=== PATIENT | female | born 1945 | race Caucasian/White ===

== ENCOUNTER 2018-01-16 16:43 | Emergency (ER) | payer MEDICARE ==
[2018-01-16] MEDS ORDERED: MECLIZINE 12.5 MG TAB PO STA (17:48)
--- NOTE | 2018-01-16 17:59 | ED ---
Dizziness HPI - General Chief Complaint: Dizziness Stated Complaint: vertigo Time Seen by Provider: 01/16/18 17:25 Source: patient, EMS, RN notes reviewed, old records reviewed Mode of arrival: EMS Limitations: no limitations - History of Present Illness Initial Comments: Patient is a 72-year-old female presents emergency department today for reevaluation due to dizziness. Patient reports that she has suffered from gastroenteritis earlier this week. Patient states that since that time she's been feeling somewhat dizzy. Patient reports that she went to urgent care on Friday, and they sent her to [facility] for high blood pressure. Patient reports that at that time they gave her some medication for blood pressure and she was discharged home shortly afterward. She complained of no chest pain shortness breath. Patient states that they did start her on Norvasc and she reports the medicines today. She states she still continued to feel somewhat dizzy. Patient reports that she went to urgent care again today. They sent her here for an abnormal EKG with ST elevation in V1 and concern for potassium abnormalities. Patient states that she has no significant complaints besides feeling somewhat dizzy and off balance. She states she had a CT of her brain was normal. - Related Data Home Medications Medication Instructions Recorded Confirmed Hydrochlorothiazide [Hydrodiuril] 50 mg PO DAILY 01/16/18 01/16/18 Ibuprofen [Motrin Ib] 400 mg PO Q6H PRN 01/16/18 01/16/18 amLODIPine [Norvasc] 10 mg PO DAILY 01/16/18 01/16/18 Previous Rx's Medication Instructions Recorded Meclizine [Antivert] 25 mg PO TID #15 tab 01/16/18 amLODIPine BESYLATE [Norvasc] 5 mg PO DAILY #10 tablet 01/16/18 Allergies Allergy/AdvReac Type Severity Reaction Status Date / Time No Known Allergies Allergy Verified 01/16/18 17:30 Review of Systems ROS Statement: Those systems with pertinent positive or pertinent negative responses have been documented in the HPI. ROS Other: All systems not noted in ROS Statement are negative. Past Medical History Past Medical History: Hypertension History of Any Multi-Drug Resistant Organisms: None Reported Past Surgical History: No Surgical Hx Reported Past Psychological History: No Psychological Hx Reported Smoking Status: Current every day smoker Past Alcohol Use History: Rare Past Drug Use History: None Reported General Exam - General Exam Comments Initial Comments: Is a 72-year-old female. Alert and oriented. Patient appears in no acute distress. Limitations: no limitations General appearance: alert, in no apparent distress Head exam: Present: atraumatic, normocephalic, normal inspection Eye exam: Present: normal appearance, PERRL, EOMI. Absent: scleral icterus, conjunctival injection, periorbital swelling ENT exam: Present: normal exam, mucous membranes moist Neck exam: Present: normal inspection. Absent: tenderness, meningismus, lymphadenopathy Respiratory exam: Present: normal lung sounds bilaterally. Absent: respiratory distress, wheezes, rales, rhonchi, stridor Cardiovascular Exam: Present: regular rate, normal rhythm, normal heart sounds. Absent: systolic murmur, diastolic murmur, rubs, gallop, clicks GI/Abdominal exam: Present: soft, normal bowel sounds. Absent: distended, tenderness, guarding, rebound, rigid Extremities exam: Present: normal inspection, full ROM, normal capillary refill. Absent: tenderness, pedal edema, joint swelling, calf tenderness Back exam: Present: normal inspection Neurological exam: Present: alert, oriented X3, CN II-XII intact Psychiatric exam: Present: normal affect, normal mood Skin exam: Present: warm, dry, intact, normal color. Absent: rash Course Vital Signs 01/16/18 01/16/18 01/16/18 17:03 18:37 21:00 Temperature 97.8 F Pulse Rate 70 63 80 Respiratory 18 16 18 Rate Blood Pressure 190/92 177/92 143/69 O2 Sat by Pulse 98 95 97 Oximetry Medical Decision Making - Lab Data Result diagrams: 01/16/18 17:10 01/16/18 17:10 Lab Results 01/16/18 01/16/18 01/16/18 Range/Units 17:10 17:10 17:10 WBC 7.9 (3.8-10.6) k/uL RBC 5.04 (3.80-5.40) m/uL Hgb 15.4 (11.4-16.0) gm/dL Hct 45.5 (34.0-46.0) % MCV 90.2 (80.0-100.0) fL MCH 30.6 (25.0-35.0) pg MCHC 33.9 (31.0-37.0) g/dL RDW 13.3 (11.5-15.5) % Plt Count 228 (150-450) k/uL Neutrophils % 68 % Lymphocytes % 23 % Monocytes % 5 % Eosinophils % 2 % Basophils % 1 % Neutrophils # 5.4 (1.3-7.7) k/uL Lymphocytes # 1.8 (1.0-4.8) k/uL Monocytes # 0.4 (0-1.0) k/uL Eosinophils # 0.2 (0-0.7) k/uL Basophils # 0.1 (0-0.2) k/uL PT (9.0-12.0) sec INR (<1.2) APTT (22.0-30.0) sec Sodium 140 (137-145) mmol/L Potassium 3.8 (3.5-5.1) mmol/L Chloride 103 (98-107) mmol/L Carbon Dioxide 30 (22-30) mmol/L Anion Gap 7 mmol/L BUN 15 (7-17) mg/dL Creatinine 0.52 (0.52-1.04) mg/dL Est GFR (CKD-EPI)AfAm >90 (>60 ml/min/1.73 sqM) Est GFR (CKD-EPI)NonAf >90 (>60 ml/min/1.73 sqM) Glucose 96 (74-99) mg/dL Calcium 10.0 (8.4-10.2) mg/dL Magnesium 1.8 (1.6-2.3) mg/dL Total Bilirubin 1.0 (0.2-1.3) mg/dL AST 31 (14-36) U/L ALT 29 (9-52) U/L Alkaline Phosphatase 86 (38-126) U/L Total Creatine Kinase 200 H (30-135) U/L CK-MB (CK-2) 3.5 H (0.0-2.4) ng/mL CK-MB (CK-2) Rel Index 1.8 Troponin I <0.012 (0.000-0.034) ng/mL Total Protein 7.4 (6.3-8.2) g/dL Albumin 4.2 (3.5-5.0) g/dL Urine Color Urine Appearance (Clear) Urine pH (5.0-8.0) Ur Specific Elliott (1.001-1.035) Urine Protein (Negative) Urine Glucose (UA) (Negative) Urine Ketones (Negative) Urine Blood (Negative) Urine Nitrite (Negative) Urine Bilirubin (Negative) Urine Urobilinogen (<2.0) mg/dL Ur Leukocyte Esterase (Negative) 01/16/18 01/16/18 Range/Units 17:10 17:10 WBC (3.8-10.6) k/uL RBC (3.80-5.40) m/uL Hgb (11.4-16.0) gm/dL Hct (34.0-46.0) % MCV (80.0-100.0) fL MCH (25.0-35.0) pg MCHC (31.0-37.0) g/dL RDW (11.5-15.5) % Plt Count (150-450) k/uL Neutrophils % % Lymphocytes % % Monocytes % % Eosinophils % % Basophils % % Neutrophils # (1.3-7.7) k/uL Lymphocytes # (1.0-4.8) k/uL Monocytes # (0-1.0) k/uL Eosinophils # (0-0.7) k/uL Basophils # (0-0.2) k/uL PT 10.1 (9.0-12.0) sec INR 1.0 (<1.2) APTT 22.5 (22.0-30.0) sec Sodium (137-145) mmol/L Potassium (3.5-5.1) mmol/L Chloride (98-107) mmol/L Carbon Dioxide (22-30) mmol/L Anion Gap mmol/L BUN (7-17) mg/dL Creatinine (0.52-1.04) mg/dL Est GFR (CKD-EPI)AfAm (>60 ml/min/1.73 sqM) Est GFR (CKD-EPI)NonAf (>60 ml/min/1.73 sqM) Glucose (74-99) mg/dL Calcium (8.4-10.2) mg/dL Magnesium (1.6-2.3) mg/dL Total Bilirubin (0.2-1.3) mg/dL AST (14-36) U/L ALT (9-52) U/L Alkaline Phosphatase (38-126) U/L Total Creatine Kinase (30-135) U/L CK-MB (CK-2) (0.0-2.4) ng/mL CK-MB (CK-2) Rel Index Troponin I (0.000-0.034) ng/mL Total Protein (6.3-8.2) g/dL Albumin (3.5-5.0) g/dL Urine Color Colorless Urine Appearance Clear (Clear) Urine pH 6.5 (5.0-8.0) Ur Specific Elliott 1.004 (1.001-1.035) Urine Protein Negative (Negative) Urine Glucose (UA) Negative (Negative) Urine Ketones Negative (Negative) Urine Blood Negative (Negative) Urine Nitrite Negative (Negative) Urine Bilirubin Negative (Negative) Urine Urobilinogen <2.0 (<2.0) mg/dL Ur Leukocyte Esterase Negative (Negative) 01/16/18 18:04 EKG performed at 1700 symptoms or signs of abnormal EKG. Ventricular rate 65 bpm. Verbal 150 ms. QRS ration 74 ms. QT QTc is 392/407 ms. - Radiology Data Radiology results: report reviewed Chest x-ray shows chronic changes any acute cardio primary process. Disposition Clinical Impression: Vertigo, HTN (hypertension) Disposition: HOME SELF-CARE Condition: Good Instructions: Dizziness (ED) Additional Instructions: Patient advised to follow-up with primary care physician. Return to the emergency department if any alarming signs or symptoms occur. Cut norvasc in half. Patient should add antivert medication. Prescriptions: amLODIPine BESYLATE [Norvasc] 5 mg PO DAILY #10 tablet Meclizine [Antivert] 25 mg PO TID #15 tab Is patient prescribed a controlled substance at d/c from ED?: No Referrals: None,Stated [Primary Care Provider] - 1-2 days Time of Disposition: 22:27
[2018-01-16] MEDS ORDERED: SODIUM CHLORIDE 0.9% 1,000 ML IV SCH (18:00)
[2018-01-16] MEDS ORDERED: hydrALAZINE HCL 20 MG/ML 1 ML VIAL IVP STA (18:01)
[2018-01-16 18:11] LABS: Basophils # (A) 0.1 k/uL (0-0.2); Basophils % (A) 1 %; Eosinophils # (A) 0.2 k/uL (0-0.7); Eosinophils % (A) 2 %; HCT 45.5 % (34.0-46.0); HGB 15.4 gm/dL (11.4-16.0); Lymphocytes # (A) 1.8 k/uL (1.0-4.8); Lymphocytes % (A) 23 %; MCH 30.6 pg (25.0-35.0); MCHC 33.9 g/dL (31.0-37.0); MCV 90.2 fL (80.0-100.0); Mean Platelet Volume 7.1; Monocytes # (A) 0.4 k/uL (0-1.0); Monocytes % (A) 5 %; Neutrophils # (A) 5.4 k/uL (1.3-7.7); Neutrophils % (A) 68 %; Platelet Count 228 k/uL (150-450); RBC 5.04 m/uL (3.80-5.40); RDW 13.3 % (11.5-15.5); WBC 7.9 k/uL (3.8-10.6)
[2018-01-16 18:14] LABS: Appearance,Urine Clear (Clear); Bilirubin,Urine Negative (Negative); Blood,Urine Negative (Negative); Color,Urine Colorless; Glucose,Urine (UA) Negative (Negative); Ketones,Urine Negative (Negative); Leukocyte Esterase,Urine Negative (Negative); Nitrite,Urine Negative (Negative); PH, Urine 6.5 (5.0-8.0); Protein,Urine Negative (Negative); Specific Gravity,Urine 1.004 (1.001-1.035); Urobilinogen,Urine <2.0 mg/dL (<2.0)
[2018-01-16 18:20] LABS: ALT 29 U/L (9-52); AST 31 U/L (14-36); Albumin 4.2 g/dL (3.5-5.0); Alkaline Phosphatase 86 U/L (38-126); Anion Gap 7 mmol/L; Blood Urea Nitrogen 15 mg/dL (7-17); Carbon Dioxide 30 mmol/L (22-30); Chloride 103 mmol/L (98-107); Glucose 96 mg/dL (74-99); Magnesium 1.8 mg/dL (1.6-2.3); Partial Thromboplastin Time 22.5 sec (22.0-30.0); Potassium 3.8 mmol/L (3.5-5.1); Prothrombin Time 10.1 sec (9.0-12.0); Sodium 140 mmol/L (137-145); Total Protein 7.4 g/dL (6.3-8.2)
[2018-01-16 18:29] LABS: Creatine Kinase 200 U/L (30-135)
--- NOTE | 2018-01-16 18:30 | XR ---
EXAMINATION TYPE: XR chest 2V DATE OF EXAM: 01/16/2018 COMPARISON: NONE HISTORY: Dizziness. Chest pain protocol. TECHNIQUE: Frontal and lateral views of the chest are obtained. FINDINGS: There is chronic emphysematous change without suspicious focal air space opacity, pleural effusion, or pneumothorax seen. The cardiac silhouette size is within normal limits with atheroscler otic thoracic aorta. The osseous structures are demineralized. S-shaped scoliosis is present. IMPRESSION: Chronic changes without acute pulmonary process.
[2018-01-16 18:40] LABS: Creatine Kinase MB 3.5 ng/mL (0.0-2.4)
[2018-01-16 18:43] LABS: Troponin I <0.012 ng/mL (0.000-0.034)
[2018-01-16 21:30] VITALS: RESP 18
--- NOTE | 2018-01-16 21:32 | CT ---
EXAMINATION TYPE: CT angio head neck DATE OF EXAM: 01/16/2018 HISTORY: Dizziness. Headache. COMPARISON: NONE CT DLP: 1057.7 mGycm. Automated Exposure Control for Dose Reduction was Utilized. TECHNIQUE: CTA scan of the head and neck are performed with IV Contrast, patient injected with 65ml mL of Isovue 370, axial images are obtained, coronal and sagittal reformatted images are reviewed. Th ree-D reconstructed images are created on an independent workstation and reviewed. Noncontrast head C T is also performed. FINDINGS: Carotid/Vascular Structures: There is mild to moderate calcified plaque in the aortic arch. Normal 3 vessel origins from arch is seen. Visualized portion of subclavian arteries show no significant steno sis. Right common carotid artery shows normal origin from right brachiocephalic artery. There is mild to moderate mixed plaque at right carotid bulb extending into the external carotid artery where ther e is likely stenosis over 50% present. Right internal carotid artery shows tortuous course. There is moderate calcified plaque supraclinoid segment. No significant stenosis is seen. There is severe calcified plaque left carotid bulb extending into proximal internal carotid artery. S ignificant stenosis on the reconstructed images is not felt present. Due to presence of calcified fred que, I cannot accurately grade degree of stenosis as well as 1 mm thin cut images are not sent to PAC S making evaluation slightly suboptimal.. There is a patent external carotid artery without significa nt stenosis. There is dominant left vertebral artery. Vertebral arteries are patent to basilar junction. There is a patent right posterior communicating artery. There is no significant focal stenosis or aneurysmal c hange and posterior circulation. There is hypoplastic left posterior communicating artery seen. There is patent anterior commuting artery. There is no significant focal stenosis or aneurysmal zavaleta e at the level of [place]. Other: Noncontrast head CT shows no acute intracranial hemorrhage or midline shift. There is ventricu lar and sulcal prominence. There is low attenuation deep and periventricular white matter. The sinuse s are clear and the globes are intact bilaterally. IMPRESSION: 1. No aneurysmal change at level of [place]. 2. Prominent calcified plaque proximal left internal carotid artery with stenosis felt just under 50% present.
[2018-01-16 22:37] VITALS: BP 148/79; PULSE 72; TEMP 98.2
== END 2018-01-16 22:42 | disposition home or self-care (01) ==
LOC: EC 16:43
DX: I10 Essential (primary) hypertension (principal); R42 Dizziness and giddiness; F17.200 Nicotine dependence, unspecified, uncomplicated; Z79.899 Other long term (current) drug therapy
CPT/HCPCS: 99285; 96374; 96361 ×4; 36415; 93005; 80053; 82550; 82553; 83735; 84484; 85025; 85610; 85730; 81003; 71046; 70496; 70498; J0360; Q9967